=== PATIENT | male | born 1970 | race Hispanic/Latino ===

== ENCOUNTER 2024-05-28 09:25 | Emergency (ER) | payer BC ==
[~2024-05-28] VITALS: Ht 317.5 cm; Wt 99.8 kg
[~2024-05-28 09:25] MED LIST: BENICAR20 MG PO; INSULIN AS100 UNIT/3 SC; INSULIN PEN NE1 EAC1 SC; LANTUS 3ML100 UNITS/ SC; PANTOPRAZOLE SO40 MG PO
[2024-05-28] MEDS ORDERED: ONDANSETRON HCL INJ 2MG/ML 2ML 2 MG/ML VIAL IV PRN (09:45)
[2024-05-28] MEDS: SODIUM CHLORIDE 0.9% 1000ML 1,000 ML IV STA (10:56)
[2024-05-28 10:57] LABS: BASOPHILS % 0.3 % (0.0-1.0); EOSINOPHILS % 0.1 % (0.0-6.0); HEMATOCRIT 34.3 % (38.2-49.6); HEMOGLOBIN 10.2 g/dL (14.0-18.0); LYMPHOCYTES # (AUTO) 0.5 (1.0-3.2); LYMPHOCYTES % 7.2 % (18.0-39.1); MEAN CORPUSCULAR HEMOGLOBIN 26.9 pg (28-32); MEAN CORPUSCULAR HGB CONC 29.7 g/dL (31-35); MEAN CORPUSCULAR VOLUME 90.5 fL (81-99); MONOCYTES % 14.2 % (4.4-11.3); NEUTROPHILS # (AUTO) 5.5 (2.1-6.9); NEUTROPHILS % 77.6 % (38.7-80.0); PLATELET COUNT 129 x10e3/uL (140-360); RED BLOOD COUNT 3.79 x10e6/uL (4.3-5.7); RED CELL DISTRIBUTION WIDTH 15.6 % (11.7-14.4); WHITE BLOOD COUNT 7.09 x10e3/uL (4.8-10.8)
[2024-05-28 11:06] LABS: BILIRUBIN,URINE MODERATE (NEGATIVE); CLARITY,URINE CLOUDY (CLEAR); COLOR,URINE AMBER (YELLOW); GLUCOSE, URINE NEGATIVE (NEGATIVE); KETONES,URINE 1+ (NEGATIVE); LEUKOCYTE ESTERASE ,URINE NEGATIVE (NEGATIVE); NITRITE,URINE POSITIVE (NEGATIVE); PH,URINE 5.5 (5 - 7); PROTEIN,URINE DIPSTICK 2+ (NEGATIVE); URINE UROBILINOGEN 0.2 mg/dL (0.2 - 1)
[2024-05-28 11:16] LABS: ALBUMIN 2.1 g/dL (3.5-5.0); ALBUMIN/GLOBULIN RATIO 0.5 (0.8-2.0); ANION GAP 13.2 mmol/L (8-16); BILIRUBIN,TOTAL 0.8 mg/dL (0.2-1.2); CALCIUM 8.5 mg/dL (8.4-10.2); CREATININE, SERUM 1.83 mg/dL (0.72-1.25); POTASSIUM 4.2 mmol/L (3.5-5.1); TOTAL PROTEIN 6.7 g/dL (6.5-8.1)
[2024-05-28 11:23] LABS: BACTERIA,URINE MODERATE /HPF; RBC,URINE >50 /HPF (0-5); WBC,URINE (MAN) 0-5 /HPF (0-5)
[2024-05-28 11:24] LABS: EPITHELIAL CELLS,URINE MODERATE /LPF; TRANSITIONAL EPI CELLS,URINE MODERATE
[2024-05-28] MEDS: BENZOCAINE 20% SPR 60 ML CAN MT ONE (11:47)
[2024-05-28] MEDS ORDERED: IOPAMIDOL 370 MG/ML 100 ML INFUS..BTL INJ ONE (11:53)
[2024-05-28 12:33] LABS: BODY FLUID APPEARANCE SL.CLOUDY; BODY FLUID COLOR YELLOW; BODY FLUID TYPE PERITONEAL; WBC,BODY FLUID 1622 cells/uL
[2024-05-28 12:34] LABS: RBC,BODY FLUID 2000 cells/uL
[2024-05-28] MEDS: METRONIDAZOLE 750MG/NS 150ML 150 ML IV SCH (13:28)
[2024-05-28 14:07] LABS: LYMPHOCYTES,BODY FLUID 22 %; MONO/MACROPHG,BODY FLUID 8 %; NEUTROPHILS,BODY FLUID 70 %
[2024-05-28 14:09] LABS: CORONAVIRUS COVID-19 AG NEGATIVE (NEGATIVE); INFLUENZA A AG NEGATIVE (NEGATIVE); INFLUENZA B AG NEGATIVE (NEGATIVE)
[2024-05-28] MEDS ORDERED: METRONIDAZOLE375 MG PO (14:09)
[2024-05-28] MEDS ORDERED: CEFDINIR300 MG PO (14:09)
[2024-05-28 15:03] VITALS: PULSE 103; RESP 18; TEMP 97.7; O2SAT 100
== END 2024-05-28 15:10 | disposition left against medical advice (07) ==
LOC: ER 09:29
DX: R10.30 Lower abdominal pain, unspecified (principal); L02.211 Cutaneous abscess of abdominal wall; K65.2 Spontaneous bacterial peritonitis; R18.8 Other ascites; I10 Essential (primary) hypertension; E11.65 Type 2 diabetes mellitus with hyperglycemia; Z11.52 Encounter for screening for COVID-19; Z93.3 Colostomy status; Z85.038 Personal history of other malignant neoplasm of large intestine; Z85.05 Personal history of malignant neoplasm of liver; Z79.60 Long term (current) use of unspecified immunomodulators and immunosuppressants
CPT/HCPCS: 36415; 49083; 51702; 74177; 80053; 81001; 83605; 83690; 85025; 87040; 87071; 87075; 87205; 87428; 89051; 99284; J2543; J7030; Q9967; 51700

== ENCOUNTER 2024-06-18 20:36 | Emergency (ER) | payer BC ==
[~2024-06-18] VITALS: Ht 317.5 cm; Wt 99.8 kg
[~2024-06-18 20:36] MED LIST changes: +CEFDINIR300 MG PO; +METRONIDAZOLE375 MG PO
[2024-06-18] MEDS: ACETAMINOPHEN 325 MG TAB PO STA (21:11)
[2024-06-18 21:15] LABS: BASOPHILS % 0.2 % (0.0-1.0); HEMATOCRIT 28.7 % (38.2-49.6); HEMOGLOBIN 8.8 g/dL (14.0-18.0); LYMPHOCYTES # (AUTO) 0.7 (1.0-3.2); LYMPHOCYTES % 5.6 % (18.0-39.1); MEAN CORPUSCULAR HEMOGLOBIN 26.7 pg (28-32); MEAN CORPUSCULAR HGB CONC 30.7 g/dL (31-35); MONOCYTES # (AUTO) 1.3 (0.2-0.8); MONOCYTES % 10.3 % (4.4-11.3); NEUTROPHILS # (AUTO) 10.7 (2.1-6.9); NEUTROPHILS % 82.2 % (38.7-80.0); PLATELET COUNT 193 x10e3/uL (140-360); RED CELL DISTRIBUTION WIDTH 17.2 % (11.7-14.4); WHITE BLOOD COUNT 12.95 x10e3/uL (4.8-10.8)
[2024-06-18] MEDS: SODIUM CHLORIDE 0.9% 1000ML 1,000 ML IV STA (21:24)
[2024-06-18 21:42] LABS: ALANINE AMINOTRANSFERASE 16 IU/L (0-55); ALBUMIN 2.2 g/dL (3.5-5.0); ALBUMIN/GLOBULIN RATIO 0.4 (0.8-2.0); ALKALINE PHOSPHATASE 121 IU/L (40-150); ANION GAP 16.4 mmol/L (8-16); BILIRUBIN,TOTAL 0.4 mg/dL (0.2-1.2); BLOOD UREA NITROGEN 19 mg/dL (7-26); BUN/CREATININE RATIO 18 (6-25); CALCIUM 8.9 mg/dL (8.4-10.2); CARBON DIOXIDE 12 mmol/L (22-29); CHLORIDE 101 mmol/L (98-107); CREATININE, SERUM 1.08 mg/dL (0.72-1.25); EST GLOMERULAR FILTRATION RATE 83 ML/MIN (>=60); GLUCOSE 243 mg/dL (74-118); POTASSIUM 4.4 mmol/L (3.5-5.1); SODIUM 125 mmol/L (136-145); TOTAL PROTEIN 7.8 g/dL (6.5-8.1)
[2024-06-18 21:50] LABS: CREATINE KINASE < 7 IU/L (30-200); TROPONIN I < 0.001 ng/mL (0-0.300)
[2024-06-18] MEDS ORDERED: IOPAMIDOL 370 MG/ML 100 ML INFUS..BTL INJ ONE (21:52)
[2024-06-18 22:05] LABS: INFLUENZA A AG NEGATIVE (NEGATIVE); INFLUENZA B AG NEGATIVE (NEGATIVE)
[2024-06-18 22:06] LABS: CORONAVIRUS COVID-19 AG NEGATIVE (NEGATIVE)
[2024-06-18 22:33] VITALS: TEMP 98.8
[2024-06-18 22:49] VITALS: PULSE 94; RESP 21
[2024-06-18 22:53] LABS: BILIRUBIN,URINE NEGATIVE (NEGATIVE); CLARITY,URINE CLOUDY (CLEAR); COLOR,URINE AMBER (YELLOW); GLUCOSE, URINE NEGATIVE (NEGATIVE); KETONES,URINE NEGATIVE (NEGATIVE); LEUKOCYTE ESTERASE ,URINE NEGATIVE (NEGATIVE); NITRITE,URINE NEGATIVE (NEGATIVE); PH,URINE 5.5 (5 - 7); PROTEIN,URINE DIPSTICK 2+ (NEGATIVE); URINE UROBILINOGEN 0.2 mg/dL (0.2 - 1)
[2024-06-18 23:12] LABS: BACTERIA,URINE MANY /HPF; EPITHELIAL CELLS,URINE MODERATE /LPF; RBC,URINE >50 /HPF (0-5); WBC,URINE (MAN) 21-50 /HPF (0-5)
[2024-06-19 01:33] VITALS: BP 115/78; PULSE 91; RESP 25; TEMP 98; O2SAT 100
[2024-06-19] MEDS ORDERED: HYDROCODON-ACE1 EA11 PO (01:36)
[2024-06-19] MEDS ORDERED: ONDANSETRON ODT4 MG PO (01:36)
[2024-06-19] MEDS ORDERED: AMOX TR-K CLV1 EAC2 PO (01:36)
== END 2024-06-19 01:43 | disposition home or self-care (01) ==
LOC: ER 20:56
DX: R11.2 Nausea with vomiting, unspecified (principal); L02.211 Cutaneous abscess of abdominal wall; N39.0 Urinary tract infection, site not specified; E87.1 Hypo-osmolality and hyponatremia; E11.65 Type 2 diabetes mellitus with hyperglycemia; I10 Essential (primary) hypertension; J90 Pleural effusion, not elsewhere classified; R18.8 Other ascites; Z85.05 Personal history of malignant neoplasm of liver; Z85.038 Personal history of other malignant neoplasm of large intestine
CPT/HCPCS: 36415; 71045; 74177; 80053; 81001; 82550; 83605; 83690; 83880; 84484; 85025; 87040; 87086; 87186; 87428; 93005; 99284; J2543; J7030; Q9967